=== PATIENT | female | born 1945 | race Caucasian/White ===

== ENCOUNTER 2020-10-29 15:47 | Observation (INO) ==
[2020-10-29] MEDS ORDERED: *HR* HYDROmorphone (PF) 1 MG/ML SYRINGE IVP ONE (17:50)
[2020-10-29 18:38] LABS: Basophils # 0.1 K/mcL (0.0-0.2); Basophils % 0.7 %; Eosinophils # 0.1 K/mcL (0.0-0.6); Hematocrit 39.9 % (35.3-44.9); Hemoglobin 13.4 g/dL (11.5-15.4); Immature Granulocytes % 0.1 % (0-4); Lymphocytes % 28.3 %; Mean Corpuscular HGB Conc 33.6 g/dL (31.6-35.5); Mean Corpuscular Hemoglobin 38.5 pg (28.0-33.3); Mean Corpuscular Volume 114.7 fL (83.0-100.0); Mean Platelet Volume 9.4 fL (9.4-12.4); Monocytes # 0.7 K/mcL (0.0-1.3); Monocytes % 10.2 %; Neutrophils # 4.2 K/mcL (1.6-8.9); Platelet Count 360 K/mcL (140-400); Red Blood Count 3.48 M/mcL (3.82-4.97); Red Cell Distribution Width 13.1 % (11.5-14.5); Segmented Neutrophils % 59.7 %
[2020-10-29 18:40] LABS: Bacteria,Urine Few per hpf (None-Few); Bilirubin,Urine Negative (Negative); Blood,Urine Negative (Negative); Clarity,Urine Clear (Clear); Color,Urine Colorless (Yellow); Glucose,Urine (UA) Normal (Normal); Ketones,Urine Negative (Negative); Leukocyte Esterase,Urine Large (Negative); Nitrite,Urine Negative (Negative); PH,Urine 6.5 pH Units (5.0-8.0); Protein,Urine Negative (Neg-Trace); RBC,Urine 0-3 per hpf (0-3); Specific Gravity,Urine 1.008 (1.010-1.025); Squamous Epithelial Cell,Urine Few per hpf (None-Few); Urobilinogen,Urine Normal (Normal); WBC,Urine 30-50 per hpf (0-3)
[2020-10-29 18:51] LABS: BUN/Creatinine Ratio 15 (6-26); Blood Urea Nitrogen 11 mg/dL (8-23); Calcium 9.9 mg/dL (8.6-10.3); Carbon Dioxide 27 mEq/L (23-29); Chloride 107 mEq/L (98-107); Glucose 108 mg/dL (70-105); Osmolality,Calculated 298 (280-300); Potassium 4.1 mEq/L (3.5-5.1); Sodium 144 mEq/L (136-145); eGFR For African Americans > 60 (> 60); eGFR For Non-African Americans > 60 (> 60)
[2020-10-29 19:20] LABS: Macrocytosis Present (Not Present); Reactive Lymphocytes Present (Not Present)
[2020-10-29] MEDS ORDERED: Naloxone 0.4 MG/ML INJ IVP PRN (21:11)
[2020-10-29] MEDS ORDERED: Acetaminophen 325 MG TABLET PO PRN (21:11)
[2020-10-29] MEDS ORDERED: Ondansetron ODT 4 MG TAB.RAPDIS SL PRN (21:11)
[2020-10-29] MEDS ORDERED: 0.9 % Sodium Chloride 1,000 ML IVC SCH (21:15)
[2020-10-29] MEDS ORDERED: *HR* HYDROmorphone (PF) 1 MG/ML SYRINGE IVP PRN (21:39)
[2020-10-29] MEDS: cefTRIAXone 1,000 MG in 0.9 % Sodium Chloride Mini Bag 100 ML IVPB SCH (23:03)
[2020-10-30] MEDS: *HR* HYDROmorphone (PF) 1 MG/ML SYRINGE IVP PRN ×2 (04:57→21:02)
[2020-10-30 06:30] LABS: BUN/Creatinine Ratio 12 (6-26); Blood Urea Nitrogen 9 mg/dL (8-23); Calcium 9.3 mg/dL (8.6-10.3); Carbon Dioxide 25 mEq/L (23-29); Chloride 109 mEq/L (98-107); Glucose 118 mg/dL (70-105); Magnesium 1.8 mg/dL (1.6-2.6); Osmolality,Calculated 296 (280-300); Potassium 4.2 mEq/L (3.5-5.1); Sodium 143 mEq/L (136-145); eGFR For African Americans > 60 (> 60); eGFR For Non-African Americans > 60 (> 60)
[2020-10-30 06:42] LABS: Thyroid Stimulating Hormone 7.968 mcIU/mL (0.340-5.600)
[2020-10-30 07:00] LABS: INR 1.1; Prothrombin Time 12.8 Seconds (9.4-12.1)
[2020-10-30] MEDS: cefTRIAXone 1,000 MG in 0.9 % Sodium Chloride Mini Bag 100 ML IVPB SCH (09:35)
[2020-10-30] MEDS ORDERED: Loratadine 10 MG TABLET PO PRN (11:31)
[2020-10-30] MEDS ORDERED: Hydroxyurea 500 MG CAPSULE PO SCH ×2 (11:45→21:00)
[2020-10-30] MEDS: lisinopriL 20 MG TABLET PO SCH ×2 (12:28→20:28)
[2020-10-30] MEDS: DilTIAZem CD (24hr) 240 MG CAP.ER.24H PO SCH (12:28)
[2020-10-30 13:21] LABS: Mean Corpuscular Hemoglobin 39.1 pg (28.0-33.3); Red Cell Distribution Width 13.2 % (11.5-14.5)
[2020-10-30 13:23] LABS: Basophils # 0.1 K/mcL (0.0-0.2); Basophils % 0.9 %; Eosinophils # 0.1 K/mcL (0.0-0.6); Eosinophils % 1.2 %; Hematocrit 41.1 % (35.3-44.9); Hemoglobin 13.6 g/dL (11.5-15.4); Immature Granulocytes % 0.3 % (0-4); Lymphocytes # 1.7 K/mcL (0.6-4.6); Lymphocytes % 26.5 %; Mean Corpuscular HGB Conc 33.1 g/dL (31.6-35.5); Mean Corpuscular Volume 118.1 fL (83.0-100.0); Mean Platelet Volume 9.6 fL (9.4-12.4); Monocytes % 8.4 %; Neutrophils # 4.1 K/mcL (1.6-8.9); Platelet Count 343 K/mcL (140-400); Red Blood Count 3.48 M/mcL (3.82-4.97); Segmented Neutrophils % 62.7 %; White Blood Count 6.5 K/mcL (4.3-11.1)
[2020-10-30 13:51] LABS: Monocytes # 0.6 K/mcL (0.0-1.3)
[2020-10-30 13:52] LABS: Macrocytosis Present (Not Present); Platelet Estimate Normal (Normal)
[2020-10-30] MEDS ORDERED: Prochlorperazine 10 MG/2 ML VIAL IVP PRN (23:03)
[2020-10-31 04:36] LABS: Basophils % 0.6 %; Eosinophils # 0.1 K/mcL (0.0-0.6); Eosinophils % 0.8 %; Hematocrit 37.2 % (35.3-44.9); Hemoglobin 12.7 g/dL (11.5-15.4); Immature Granulocytes % 0.5 % (0-4); Lymphocytes # 1.7 K/mcL (0.6-4.6); Lymphocytes % 26.3 %; Mean Corpuscular HGB Conc 34.1 g/dL (31.6-35.5); Mean Corpuscular Hemoglobin 38.7 pg (28.0-33.3); Mean Corpuscular Volume 113.4 fL (83.0-100.0); Mean Platelet Volume 9.4 fL (9.4-12.4); Monocytes # 0.5 K/mcL (0.0-1.3); Monocytes % 7.6 %; Neutrophils # 4.1 K/mcL (1.6-8.9); Platelet Count 339 K/mcL (140-400); Red Blood Count 3.28 M/mcL (3.82-4.97); Red Cell Distribution Width 12.9 % (11.5-14.5); Segmented Neutrophils % 64.2 %; White Blood Count 6.4 K/mcL (4.3-11.1)
[2020-10-31 04:57] LABS: BUN/Creatinine Ratio 9 (6-26); Blood Urea Nitrogen 9 mg/dL (8-23); Calcium 9.1 mg/dL (8.6-10.3); Carbon Dioxide 27 mEq/L (23-29); Chloride 109 mEq/L (98-107); Glucose 130 mg/dL (70-105); Magnesium 1.8 mg/dL (1.6-2.6); Osmolality,Calculated 296 (280-300); Potassium 3.9 mEq/L (3.5-5.1); Sodium 143 mEq/L (136-145); eGFR For African Americans > 60 (> 60); eGFR For Non-African Americans 55 (> 60)
[2020-10-31 05:17] LABS: Macrocytosis Present (Not Present); Polychromasia 1+ (Not Present)
[2020-10-31 05:18] LABS: Platelet Estimate Normal (Normal)
[2020-10-31] MEDS: lisinopriL 20 MG TABLET PO SCH (07:54)
[2020-10-31] MEDS: DilTIAZem CD (24hr) 240 MG CAP.ER.24H PO SCH (07:54)
[2020-10-31] MEDS: cefTRIAXone 1,000 MG in 0.9 % Sodium Chloride Mini Bag 100 ML IVPB SCH (07:55)
[2020-10-31] MEDS: *HR* HYDROmorphone (PF) 1 MG/ML SYRINGE IVP PRN (10:54)
[2020-10-31] MEDS ORDERED: Isovue-300 50ML VIAL ONE (16:01)
[2020-10-31] MEDS ORDERED: *HR* FentaNYL (PF) 100 MCG/2 ML VIAL ONE ×2 (16:33→18:53)
[2020-10-31] MEDS ORDERED: *HR* Propofol 200 MG/20 ML VIAL IVP ONE ×2 (16:33→18:52)
[2020-10-31] MEDS ORDERED: Ondansetron 4 MG/2 ML VIAL ONE (17:41)
[2020-10-31] MEDS ORDERED: CeFAZolin Syr 2,000MG/20 ML 2,000 MG/20 ML SYRINGE IVPB ONE (17:45)
[2020-10-31] MEDS ORDERED: EPHEDrine 50 MG/ML VIAL ONE (17:57)
[2020-10-31] MEDS ORDERED: *HR* HYDROmorphone 2 MG TABLET PO PRN (18:13)
[2020-10-31] MEDS ORDERED: *HR* HYDROmorphone (PF) 1 MG/ML SYRINGE IVP PRN (18:13)
[2020-10-31] MEDS ORDERED: Famotidine 20 MG/2 ML VIAL IVP ONE (18:13)
[2020-10-31] MEDS ORDERED: Acetaminophen IV 1,000 MG/100 ML BAG IVPB ONE ×2 (18:13→18:45)
[2020-10-31] MEDS ORDERED: *HR* Labetalol 20 MG/4 ML SYRINGE IVP PRN (18:13)
[2020-10-31] MEDS ORDERED: *HR* OxyCODONE Immed Rel 5 MG TABLET PO PRN ×2 (18:13→19:26)
[2020-10-31] MEDS ORDERED: Sugammadex Sodium 200 MG/2 ML VIAL IV ONE (18:43)
[2020-10-31] MEDS ORDERED: Ringers Solution, Lactated 1,000 ML IVC SCH (19:26)
[2020-10-31] MEDS ORDERED: Furosemide 40 MG TABLET PO PRN (19:26)
[2020-11-01] MEDS: Azelastine 0.1% Nasal Spray 30 ML BOTTLE NS SCH ×2 (00:05→10:17)
[2020-11-01] MEDS: CeFAZolin 2 GM/120 ML BAG IVPB SCH ×2 (02:10→10:15)
[2020-11-01] MEDS ORDERED: Aspirin Enteric Coated 81 MG Tablet PO SCH (09:00)
[2020-11-01 10:24] VITALS: BP 147/82; PULSE 82; TEMP 98.1; O2SAT 97
[2020-11-01] MEDS ORDERED: Hydroxyurea 500 MG CAPSULE PO SCH (21:00)
== END 2020-11-01 16:39 | disposition home or self-care (01) ==
LOC: EMEROOARM 15:47 → 3NENU 15:47 → SUATTDRO 21:19 → 3NENU 22:07
PROVIDERS: ADMIT Student in an Organized Health Care Education/Training Program; ATTEND Pharmacist